=== PATIENT | male | born 1970 | race Caucasian/White ===

== ENCOUNTER → 2018-01-20 | Outpatient (CLI) | payer BC ==
[~2018-01-20] MED LIST: ACET-1935 PO; ALLBUTEROL; ALPR-434 PO; AMOX-559 PO; AUG875 PO; BACDS PO; CEP500 PO; DIAZ-308 PO; GABA-549 PO; GLUC-180 PO; IBU800 PO; LOR5 PO; MUP2T TOP; ONDA4TAB PO; OXYC-717 PO; OXYC-865 PO; PER PO; SULF-170 PO; TRAM-420 PO; VENL150C61 PO
== END ==
LOC: RESP 20:55
PROVIDERS: ATTEND Physician Assistant
DX: G47.33 Obstructive sleep apnea (adult) (pediatric) (principal); G47.61 Periodic limb movement disorder

== ENCOUNTER → 2018-09-24 | Outpatient (CLI) | payer BC ==
--- NOTE | 2018-09-24 14:34 | EKG ---
FACILITY: [facility] PATIENT NAME: DOC SORIANO : [id number] MR: [id number] V: [id number] EXAM DATE: ORDERING PHYSICIAN: MICHELLE BRADY TECHNOLOGIST: Test Reason : Blood Pressure : / mmHG Vent. Rate : 080 BPM Atrial Rate : 080 BPM P-R Int : 174 ms QRS Dur : 106 ms QT Int : 384 ms P-R-T Axes : 064 003 032 degrees QTc Int : 442 ms Normal sinus rhythm Normal ECG No previous ECGs available Confirmed by MARCO VERMA ([id number]) on 09/24/2018 9:04:15 PM Referred By: Confirmed By:MARCO VERMA
[2018-09-24 14:50] LABS: PLATELET COUNT, AUTOMATED 218 K/uL (150-450)
== END ==
LOC: LAB 14:14
PROVIDERS: ATTEND Orthopaedic Surgery
DX: Z01.812 Encounter for preprocedural laboratory examination (principal); Z01.810 Encounter for preprocedural cardiovascular examination; I10 Essential (primary) hypertension
CPT/HCPCS: 36415; 82040; 82247; 82310; 82374; 82435; 82565; 82947; 84075; 84132; 84155; 84295; 84450; 84460; 84520; 85025; 93005

== ENCOUNTER 2018-10-06 01:55 | Observation (INO) | payer BC ==
[~2018-10-06] VITALS: Ht 208.3 cm; Wt 152.9 kg
[2018-10-06] VITALS (9 sets, daily range): BP systolic 108–142; BP diastolic 62–91
[~2018-10-06 01:55] MED LIST changes: +ESCI20TA38 PO; +LISI-362 PO
[2018-10-06] MEDS ORDERED: DEXAMETHASONE SOD PHOS 10MG/ML ONE (08:13)
[2018-10-06] MEDS ORDERED: BUPIVACAIN 0.25% INJ 50ML VIAL ONE (08:13)
[2018-10-06] MEDS ORDERED: fentaNYL CITR 100 MCG/2 ML AMP ONE ×4 (08:18→12:42)
[2018-10-06] MEDS ORDERED: ONDANSETRON 4 MG/2 ML VIAL ONE (08:18)
[2018-10-06] MEDS ORDERED: KETAMINE HCL-NS 50 MG/5 ML SYR ONE (08:18)
[2018-10-06] MEDS ORDERED: ROCURONIUM BROM 10 MG/ML 10 ML ONE ×2 (08:18→08:21)
[2018-10-06] MEDS ORDERED: LIDOCAINE MPF 1% 5 ML VIAL ONE (08:18)
[2018-10-06] MEDS ORDERED: PROPOFOL EMUL(*) 10MG/ML 20 ML 20 ML ONE (08:18)
[2018-10-06] MEDS ORDERED: NORMOSOL R SOLN(*) 1000 ML BAG 1,000 ML IV PRN (08:35)
[2018-10-06] MEDS ORDERED: ceFAZolin(*) 1 GM VIAL 3 GM in NS(*) 0.9% 100 ML BAG 100 ML IVPB ONE (08:35)
[2018-10-06] MEDS ORDERED: LIDOCAINE/SOD BICARB 8.4% SYR ID ONE (08:35)
[2018-10-06] MEDS ORDERED: FAMOTIDINE 20 MG TAB PO ONE (08:35)
[2018-10-06] MEDS ORDERED: MIDAZOLAM 2 MG/2 ML VIAL IVP PRN (08:35)
[2018-10-06] MEDS ORDERED: BACITRACIN 50000 UNIT/VIAL 50,000 UNIT in NS 0.9% IRRIG(*) 1000ML PLCT 1,000 ML IR PRN (08:35)
[2018-10-06] MEDS ORDERED: SUGAMMADEX SOD 200 MG/2 ML SDV ONE (08:55)
[2018-10-06] MEDS ORDERED: LABETALOL HCL 25 MG/5 ML SYRINGE ONE (10:08)
[2018-10-06] MEDS ORDERED: NS(*) 0.9% 100 ML BAG 100 ML ONE (10:37)
[2018-10-06] MEDS ORDERED: SUGAMMADEX SOD 500 MG/5 ML SDV ONE (11:13)
[2018-10-06] MEDS ORDERED: LOR5/325 PO (12:13)
[2018-10-06] MEDS ORDERED: KETOROLAC 30 MG/ML VIAL ONE (12:19)
[2018-10-06] MEDS ORDERED: DOCU240C84 PO (12:20)
[2018-10-06] MEDS ORDERED: DIA5 PO (12:21)
[2018-10-06] MEDS ORDERED: APAP/HYDROCODONE 325/5 TAB ONE (13:28)
--- NOTE | 2018-10-06 14:49 | NUR ---
1311 SBAR REPORT WAS RECEIVED FROM Randy PHILLIPS RN. PATIENT IS BREATHING SPONTANEOUSLY AT A MODERATE RATE AND DEPTH. LUNGS ARE CLEAR. HE ARRIVED ON 3 LITERS NASAL CANNULA. BOWEL SOUNDS ARE HYPERACTIVE. HE DENIES ANY NAUSEA. STATES HIS PAIN IS 4.5/10. HE HAS A WHITE PRIMAPORE DRESSING ON THE LOWER PORTION OF HIS BACK/SPINE. HE HAS 2 SMALL SPOTS OF BLOOD ON THIS DRESSING. HE IS IN A LOW SEMIFOWLERS. SEE ADMISSION ASSESSMENT. PATIENT WAS TAUGHT THE IMPORTANCE OF COUGHING AND DEEP BREATHING. HE DEMONSTRATED THIS WELL. 1315 PATIENT WAS MOVED TO 2 LITERS NASAL CANNULA. 1320 PATIENT BEGAN DRINKING APPLEJUICE AND SALTINE CRACKERS. HE IS TOLERATING THIS WELL. HIS WAS IN THE ROOM. PATIENT WAS MOVED TO A HIGH FOWLERS POSITION. 1325 PATIENT WAS MOVED BACK TO 3 LITERS O2. HE DROPPED TO 79% ON 2 LITERS WHEN HE WAS SLEEPING. 1351 WENT OVER DC INSTRUCTIONS WITH PATIENT AND HIS SPOUSE. THEY VERBALIZED UNDERSTANDING. ENCOURAGED PATIENT TO CONTINUE COUGHING AND DEEP BREATHING . 1400 PATIENT IS RESTING IN BED. HE STATES HIS PAIN IS 5/10. 1420 PT WAS IN TO SEE PATIENT AND SHOW HIM HOW TO GET OUT OF BED CORRECTLY. ORTHOSTATICS WERE PERFORMED AT THIS TIME. HE DENIES ANY DIZZINESS OR LIGHTHEADEDNESS. 1422 PATIENT BEGAN STANDING. 1424 IV WAS SALINE LOCKED AND PATIENT BEGAN WALKING AROUND THE PERIOP AREA WITH PORTABLE O2.
--- NOTE | 2018-10-06 15:06 | NUR ---
1430 PATIENT RETURNED TO HIS ROOM. O2 WAS PUT BACK ON. HE BEGAN WORKING ON HIS IS. HE HAS DEMONSTRATED THIS WELL. HE IS COUGHING AND STATES HE FEELS LIKE HE IS MOVING PHLEGM FROM HIS LUNGS HE WORKS ON THIS. 1442 CARDIOPULMONARY WAS IN TO SEE PATIENT AND TEACH HIM THE AEROBIKA. HE DEMONSTRATED THIS WELL. 1445 PATIENT IS LAYING ON HIS SIDES AND STATES HE IS DOING WELL. 1500 PATIENT CONTINUES TO WORK ON HIS IS AND AEROBIKA
--- NOTE | 2018-10-06 15:15 | RADIOLOGY IMAGING REPORT ---
FACILITY: [facility] PATIENT NAME: Jeffrey Kay : 1970 MR: [id number] V: [id number] EXAM DATE: ORDERING PHYSICIAN: MICHELLE BRADY TECHNOLOGIST: Location: [facility] Patient: Jeffrey Kay : 1970 Visit/Account:[id number] Date of Sevice: 10/06/2018 L-SPINE >4 VIEWS History: Low back pain. Patient for L5-S1 disc surgery. Comparison study: MRI of the spine from July 30, 2018. Findings: Intraoperative lumbar spine film was obtained. It shows surgical instruments posterior to L5-S1. IMPRESSION: Intraoperative lumbar spine film. Report Dictated By: Tommie Perry MD at 10/06/2018 3:07 PM Report E-Signed By: Tommie Perry MD at 10/06/2018 3:10 PM WSN:[id number]
--- NOTE | 2018-10-06 15:30 | NUR ---
[address] ZEE. HE STATED WITH THE PATIENT DROPPING DOWN TO 79% ON 3 LITERS HE WILL PLAN ON KEEPING THE PATIENT OVERNIGHT. PATIENT WAS NOTIFIED. 1530 SBAR REPORT WAS GIVEN TO SOO
--- NOTE | 2018-10-06 15:30 | NUR ---
1530- SBAR FROM [facility] 1524- CHANGED IV DRESSING 1525- DR. ZEE SPOKE WITH DR. BRADY DECISION TO ADMIT PT 1532- DR. BRADY AT BEDSIDE SPEAKING WITH PT AND FAMILY/ WRITING UP ADMIT ORDERS 1536- PT TOLERATING CHEESE/CRACKERS AND WATER, DENIES NAUSEA 1541- FAXED ORDERS 1542- VSS SEE CHART FOR DETAILS 1605- PT TRANSFERRED TO MED SURG ROOM 267, PT IS A/O X 3, HE IS COOPERATIVE WITH CARES AND STAFF, MEG AT BEDSIDE, VSS, PT HAS 2 SMALL SCANT BLOOD DRAINAGE ON BACK DRESSING MARKED WITH SHARPIE, BED SIDE REPORT GIVEN TO Bailey LAMB RN.
[2018-10-06] MEDS ORDERED: ONDANSETRON 4 MG/2 ML VIAL IVP PRN (15:50)
[2018-10-06] MEDS ORDERED: ONDANSETRON 4 MG TAB PO PRN (15:50)
[2018-10-06] MEDS ORDERED: NS(*) 0.9% 1000 ML BAG 1,000 ML IV PRN (15:50)
--- NOTE | 2018-10-06 16:36 | OPERATIVE REPORT 1 ---
EVENT DATE: October 06, 2018 SURGEON: Severino Gonzalez MD ANESTHESIOLOGIST: Omari Noland MD ANESTHESIA: General endotracheal anesthesia. BRAND INSPECTOR: John Lou PA-C PREOPERATIVE DIAGNOSES 1. Right L5 and S1 radiculopathy with right-sided recurrent L5-S1 disk herniation. 2. Right-sided L4-L5 lateral recess stenosis. POSTOPERATIVE DIAGNOSES 1. Right L5 and S1 radiculopathy with right-sided recurrent L5-S1 disk herniation. 2. Right-sided L4-L5 lateral recess stenosis. PROCEDURES PERFORMED 1. L4-L5 laminoforaminotomy and lateral recess decompression. 2. L5-S1 revision microdiskectomy. INTRAVENOUS FLUIDS 1300 mL. ESTIMATED BLOOD LOSS 20 mL. IMPLANTS None. SPECIMENS None. DRAINS None. COMPLICATIONS None. DISPOSITION Post-anesthesia care unit. INDICATIONS FOR SURGERY Mr. Kay is a 48-year-old male with radiating right lower extremity pain radiating down the posterior buttock, posterior thigh, and posterior calf. He also had numbness in the same distribution as well as along the lateral aspect of the right calf. By way of history, he had undergone an L5-S1 microdiskectomy in 2016, which was successful. Physical examination showed some weakness in the tibialis anterior on the right compared to the left as well as in extensor hallucis longus on the right compared to the left. His diagnostic studies showed no evidence of instability with complete disk collapse of L4-L5 and Modic type 2 changes, as well as lateral recess narrowing. At L5-S1, there was a right paracentral disk herniation contacting, compressing, and displacing the traversing S1 nerve root. Secondary to failure of nonsurgical care and ongoing symptoms, Mr. Kay was offered and elected to undergo L4-L5 laminoforaminotomy and lateral recess decompression with L5-S1 microdiskectomy. Prior to surgery, I explained in detail to the patient the possible risks of surgery. These risks include bleeding, infection, damage to surrounding structures, nerve root injury, spinal fluid leak, meningitis, persistent and/or worsening pain, need for further surgery, , blindness, sexual dysfunction, autonomic nervous system dysfunction, and other unforeseen medical and surgical complications. An understanding that in general spinal surgery is more predictive at improving extremity discomfort than axial spine pain was stressed. DESCRIPTION OF PROCEDURE On the day of surgery, the patient was met in the preoperative hold area, and all questions were answered. The operative site was identified and marked by myself. The patient was taken in good condition to the operating room, and after succumbing to anesthesia, was positioned in the prone position on a Pratik table. All bony protuberances and soft tissues were well padded in the standard fashion. Care was taken to maintain appropriate perfusion pressures during anesthesia. Preoperative antibiotics were administered according to the appropriate timing schedule. At the conclusion of the procedure, sponge and needle counts were correct times two. A final timeout was undertaken by members of the operating team to confirm correct patient, correct levels, and correct surgery. The patient was then prepped and draped in the standard sterile orthopedic fashion, and a vertical incision was made in the midline overlying the intended surgical levels. Sharp dissection and electrocautery were used to dissect down to the posterior elements. The lumbodorsal fascia was incised to the right of the spinous processes of L4, L5, and S1. Soft tissues were elevated off the posterior elements in a subperiosteal manner, and then a lateral radiograph was obtained to confirm appropriate spinal level. At the L5-S1 level, we went through the old scar and were able to elevate the reconstituted ligamentum flavum starting in the inferior aspect of the L5 lamina and coming around to the medial border of the facet and the superior aspect of the S1 lamina. Once we had elevated that and entered the canal, I identified the S1 nerve root and retracted it carefully toward the midline. A [place] elevator was used to separate any dural adhesions from surrounding bone and soft tissue, and I then discovered a large contained broad-based disk bulge. This was removed piecemeal using a pituitary rongeur until an adequate decompression had been obtained. At the conclusion of this, I was able to pass the [place] elevator anterior to the shoulder of the nerve root and the dura without any notable compression seen or felt as well as out the foramen, and I was able to ensure complete decompression of that S1 nerve root. Attention was then turned to the L4-L5 level. A Riley-type curette was used to elevate the superior insertion of the ligamentum flavum from the inferior aspect of the L4 lamina. This was carried out along the medial aspect of the facet as well, and the canal was thus entered. Once we elevated this, it was extremely tight, and I had to use #2 and #3 Kerrison punches to perform a lateral recess decompression until I could identify the nerve root. Once the nerve root was identified, I was able to thoroughly decompress that lateral recess using #2 and #3 Kerrison punches, and I then performed a foraminotomy to ensure that the foramen was widely patent as well. A [place] elevator was passed out through the foramen and along the lateral recess at the conclusion of the decompression to ensure adequate decompression had been achieved. The entire wound was irrigated with copious sterile saline solution, and meticulous hemostasis was obtained. We then infused 2 mg of Decadron around the shoulder of each nerve root and then closed the wound in layers using interrupted sutures for the deep fascia, inverted interrupted sutures for the subcutaneous tissue, and then a running subcuticular skin stitch. Sponge and needle counts were correct times two. POSTOPERATIVE CARE PLAN The patient will remain here in the recovery area until he meets discharge criteria. He will likely be discharged to home today with instructions to follow up in two weeks for wound check and examination. GABBI
--- NOTE | 2018-10-06 18:40 | Hospitalist Consultation ---
History of Present Illness Requesting Physician Dr. Gonzalez Reason for Consult Hypertension History of Present Illness This patient was admitted after lumbar surgery. It is reported that the surgery went well and was without complication. History Problems: (1) Depression (2) Hypertension Home Meds Reported Medications Diazepam (VALIUM) 5 Mg Tablet, 5 MG PO Q8H PRN for SPASMS, #16 TAB 10/06/18 Docusate Calcium (SURFAK) 240 Mg Capsule, 240 MG PO QDAY, #9 CAPSULE 10/06/18 Hydrocodone Bit/Acetaminophen (HYDROCODON-ACETAMINOPHEN 5-325) 1 Each Tablet, 1- 2 TAB PO Q6H PRN for PAIN, #36 TAB 10/06/18 Escitalopram Oxalate (LEXAPRO) 20 Mg Tablet, 20 MG PO QDAY, TAB 09/29/18 Lisinopril (LISINOPRIL) 10 Mg Tablet, 12.5 MG PO QDAY, TAB 09/29/18 Discontinued Reported Medications Diazepam (DIAZEPAM) 5 Mg Tablet, 1-2 TAB PO Q8H PRN for SPASMS, #40 TAB 01/28/16 Oxycodone/Acetaminophen (OXYCODONE/ACETAMINOPHEN 5MG/325 MG) 5 Mg/325 Mg Tab, 1- 2 TAB PO Q6H PRN for PAIN, #50 01/28/16 Gabapentin (GABAPENTIN) 300 Mg Capsule, 300 MG PO TID PRN for PAIN, CAPSULE 01/25/16 Allergies: Coded Allergies: No Known Drug Allergies (Verified , 12/15/11) Hx Smoking: No Smoking Status: Never Smoker Caffeine Intake: Coffee Caffeine/Cups Per Day: 2 POTS/DAY Hx Alcohol Use: Yes Hx Substance Use Disorder: No Social Drug Use: Never History of IV Drug Use: No Review of Systems All Systems Reviewed/Normal: Yes Exam Vital Signs Vital Signs Date Time Temp Pulse Resp B/P (MAP) Pulse Ox O2 Delivery O2 Flow Rate FiO2 10/06/18 16:11 95 Nasal Cannula 3.0 10/06/18 16:04 97.8 80 12 121/70 (87) Neuro: No Gross deficits Cardiovascular: Regular Rate and Rhythm Respiratory: Clear to Auscultation GI: Abd Soft and Non-Tender Extremities: No Edema Integumentary: No Cyanosis Assessment and Plan Problems: (1) Hypertension Assessment & Plan: He is on chronic treatment with lisinopril. (2) Depression Assessment & Plan: He is on chronic treatment with Lexapro. Venous Thromboembolism Antithrombotics Is Pt On Any Antithrombotics?: No Exam Sepsis Risk: No Definite Risk DINO MALLORY DO October 06, 2018 18:40
[2018-10-06] MEDS: APAP/HYDROCODONE 325/5 TAB PO PRN (20:21)
[2018-10-06] MEDS: DIAZEPAM 5 MG TAB PO PRN (20:26)
--- NOTE | 2018-10-06 21:31 | NUR ---
At 1417 this PT was called to PACU to clear Pt for DC. Noted physical therapy has not been consulted. This PT assisted RN with orthostatics to ensure proper log roll technique and to screen for mobility difficulties. None were identified. Please officially consult PT if mobility issues arise. Vandana Peraza, PT, DPT
[2018-10-07 00:01] VITALS: BP 123/58
[2018-10-07 02:10] VITALS: BP 120/65
[2018-10-07] MEDS: APAP/HYDROCODONE 325/5 TAB PO PRN ×2 (02:20→09:17)
[2018-10-07] MEDS: DIAZEPAM 5 MG TAB PO PRN (04:20)
[2018-10-07 06:48] VITALS: BP 106/55
[2018-10-07] MEDS ORDERED: DOCUSATE CALCIUM 240 MG CAP PO SCH (09:00)
[2018-10-07] MEDS ORDERED: ESCITALOPRAM OXALATE 10 MG TAB PO SCH (09:00)
--- NOTE | 2018-10-07 12:05 | Hospitalist Progress Note ---
Subjective Progress Notes Subjective He was admitted s/p lumbar surgery. He is doing well post-operatively and would like to go home. Patient Complains of: Cardiovascular: No: Chest Pain Respiratory: No: Shortness of Breath Physical Exam Vital Signs Date Time Temp Pulse Resp B/P (MAP) Pulse Ox O2 Delivery O2 Flow Rate FiO2 10/07/18 07:31 90 Room Air 10/07/18 06:48 97.5 65 18 106/55 (72) 1.5 Intake and Output 10/07/18 07:00 Intake Total 4200 ml Balance 4200 ml Intake Oral 2000 ml IV Total 2200 ml # Voids 3 General Appearance: Alert, Awake, No Acute Distress, Afebrile Neuro: No Gross deficits Cardiovascular: Regular Rate and Rhythm Respiratory: No Respiratory Distress, Clear to Auscultation Extremities: Warm, Perfused; No Edema Psych: Alert & Oriented X3, Appropriate Mood & Affect Assessment and Plan Problems: (1) Hypertension Status: Chronic Assessment & Plan: He is on chronic treatment with lisinopril. (2) Depression Status: Chronic Assessment & Plan: He is on chronic treatment with Lexapro. (3) Nocturnal hypoxia Status: Acute Assessment & Plan: He will be sent home with oxygen to use at night. Exam Sepsis Risk: No Definite Risk Problem Qualifiers (1) Hypertension: Hypertension type: essential hypertension Qualified Codes: I10 - Essential (primary) hypertension CRISTINE SHELLEY October 07, 2018 12:05
== END 2018-10-07 09:23 | disposition home or self-care (01) ==
LOC: OR 01:55 → INTOOBSV 16:15 → MED 16:15
PROVIDERS: ADMIT Orthopaedic Surgery; ATTEND Orthopaedic Surgery
DX: M51.17 Intervertebral disc disorders with radiculopathy, lumbosacral region (principal); M48.061 Spinal stenosis, lumbar region without neurogenic claudication; I10 Essential (primary) hypertension; G47.33 Obstructive sleep apnea (adult) (pediatric)
CPT/HCPCS: 63030; 63047; 72020; 94667; G0378; J1100; J1885; J2001; J2405; J2704; J3010; J3490; J7050; 99281

== ENCOUNTER → 2018-10-27 | Outpatient (CLI) | payer BC ==
[~2018-10-27] MED LIST changes: +DIA5 PO; +DOCU240C84 PO; +LOR5/325 PO
== END ==
LOC: RESP 20:58
PROVIDERS: ATTEND Physician Assistant
DX: G47.33 Obstructive sleep apnea (adult) (pediatric) (principal); G47.36 Sleep related hypoventilation in conditions classified elsewhere